=== PATIENT | female | born 1965 | race Caucasian/White ===

== ENCOUNTER 2021-02-27 11:06 | Emergency (ER) | payer MEDICAID, SELFPAY ==
--- NOTE | 2021-02-27 11:12 | ED.FEMALEGU ---
HPI - Female Genitourinary General Chief complaint: Urogenital-Female Stated complaint: Possible UTI/Rash on Arms and Legs Time Seen by Provider: 02/27/21 11:12 Source: patient and RN notes reviewed History of Present Illness HPI Narrative: Patient is a 55-year-old female who presents the urgent care with complaints of a possible UTI for the last few days. Patient states that she was on doxycycline for 1 week which seemed to clear it up and then the UTI returned. Its been approximately 2-1/2 weeks and she was given a prescription for doxycycline. Patient states that she has had UTIs recurrently for the last 6 months. Denies of any fever, chills, nausea, vomiting, abdominal pain. Reports of pain with urination, decreased output and suprapubic pressure. No other acute complaints. No acute distress noted. Patient aware of the plan of care. Some parts of this dictation were generated by voice recognition software and may contain typographical and/or grammatical inaccuracies. Related Data Home Medications Medication Instructions Recorded Confirmed aspirin [Aspir-Low] 81 mg PO DAILY 02/27/21 02/27/21 atorvastatin 20 mg PO HS 02/27/21 02/27/21 buspirone 7.5 mg PO BID 02/27/21 02/27/21 fluoxetine 20 mg PO DAILY 02/27/21 02/27/21 gabapentin 800 mg PO TID 02/27/21 02/27/21 glimepiride 4 mg PO DAILY 02/27/21 02/27/21 lisinopril 20 mg PO DAILY 02/27/21 02/27/21 metformin 500 mg PO BID 02/27/21 02/27/21 Allergies Allergy/AdvReac Type Severity Reaction Status Date / Time cephalexin [From Keflex] Allergy Itching Verified 02/27/21 11:33 Sulfa (Sulfonamide Allergy Itching Verified 02/27/21 11:33 Antibiotics) Review of Systems Review of Systems: Narrative: CONSTITUTIONAL: Denies fever, chills, or sweats. EYES: Denies visual changes, redness, or discharge. ENT: Denies rhinorrhea, congestion, sore throat, or otalgia. CARDIOVASCULAR: Denies chest pain, palpitations, or edema. RESPIRATORY: Denies cough or dyspnea. GASTROINTESTINAL: Denies abdominal pain, nausea, vomiting, or diarrhea. GENITOURINARY: Reports of dysuria, decreased urinary output and suprapubic pressure SKIN: Denies rash or itching. MUSCULOSKELETAL: Denies back pain, joint pain, or myalgia. NEUROLOGIC: Denies headache, numbness, or weakness. All other systems reviewed are negative, except as documented in HPI. PMFSH Comments At the time of my signature, I reviewed and agree with the nursing past medical, surgical, social, and family history. There is no relevant family history pertinent to the patient complaint. Exam Narrative: Exam Narrative: GENERAL: This is a well-nourished, well-developed patient, in no apparent distress. HEAD: normocephalic, atraumatic. EYES: PERRL. Sclera clear/white. Vision is grossly intact. EARS: External ears normal NOSE: External nose normal with no obvious nasal discharge, nares without redness, no rhinorrhea. THROAT: Mucous membranes moist NECK: Neck supple CARDIOVASCULAR: Regular rate and rhythm without murmurs, gallops, or rubs. RESPIRATORY: Clear to auscultation. Breath sounds equal bilaterally. No wheezes, rales, or rhonchi. GASTROINTESTINAL: Abdomen soft, suprapubic tenderness, nondistended. SKIN: Scattered bug bites to bilateral upper extremities. Warm, intact with no suspicious lesions or rash, good texture and turgor. NEURO: awake, alert, and oriented to person, place and time. There were no obvious focal neurologic abnormalities. EXTREMITIES: No clubbing, cyanosis, or edema. BACK: Negative bilateral CVA tenderness Course Vital Signs Vital signs: Vital Signs Temperature 98.7 F 02/27/21 11:21 Pulse Rate 104 H 02/27/21 11:21 Respiratory Rate 02/27/21 11:21 Blood Pressure 144/82 H 02/27/21 11:21 Pulse Oximetry 98 02/27/21 11:21 Temperature 98.7 F 02/27/21 11:21 Pulse Rate 104 H 02/27/21 11:21 Respiratory Rate 02/27/21 11:21 Blood Pressure 144/82 H 02/27/21 11:21 Pulse Oximetry 98
[2021-02-27 11:21] VITALS: BP 144/82; PULSE 104; RESP 20; TEMP 37.1; O2SAT 98
== END 2021-02-27 11:50 | disposition home or self-care (01) ==
PROVIDERS: Emergency Provider Nurse Practitioner Family; PCP Nurse Practitioner Family
DX: N39.0 Urinary tract infection, site not specified (principal); E78.00 Pure hypercholesterolemia, unspecified; I10 Essential (primary) hypertension; E11.9 Type 2 diabetes mellitus without complications; F41.9 Anxiety disorder, unspecified
CPT/HCPCS: 81003; 87077; 87086; 87088; 87186; 99213; G0463

== ENCOUNTER 2021-03-04 12:43 | Emergency (ER) | payer OTHER, SELFPAY ==
[2021-03-04 12:48] VITALS: BP 158/84; PULSE 96; RESP 16; TEMP 36.2; O2SAT 98
[2021-03-04 13:09] VITALS: BP 158/84; PULSE 96; RESP 16; TEMP 36.2; O2SAT 98
--- NOTE | 2021-03-04 13:37 | ED.SKABFB ---
HPI - Skin/Abscess/Foreign Bdy General Chief complaint: Skin/Abscess/Foreign Body Stated complaint: poison phoebe or oak Time Seen by Provider: 03/04/21 13:39 Source: patient Mode of arrival: ambulatory Limitations: no limitations History of Present Illness HPI narrative: Kaley Prince is a 55 yo female with a PMH of HTN, diabetes, anticoagulation, depression, who comes to [facility] with complaints of rash on arms legs and upper shoulders after rolling down a hill on Friday night. Rash started to occur on Friday and she has tried high choke cortisone cream as well as calamine, allergy pills, has not improved Related Data Home Medications Medication Instructions Recorded Confirmed aspirin [Aspir-Low] 81 mg PO DAILY 02/27/21 03/04/21 atorvastatin 20 mg PO HS 02/27/21 03/04/21 buspirone 7.5 mg PO BID 02/27/21 03/04/21 fluoxetine 20 mg PO DAILY 02/27/21 03/04/21 gabapentin 800 mg PO TID 02/27/21 03/04/21 glimepiride 4 mg PO DAILY 02/27/21 03/04/21 lisinopril 20 mg PO DAILY 02/27/21 03/04/21 metformin 500 mg PO BID 02/27/21 03/04/21 Allergies Allergy/AdvReac Type Severity Reaction Status Date / Time cephalexin [From Keflex] Allergy Itching Verified 03/04/21 13:08 Sulfa (Sulfonamide Allergy Itching Verified 03/04/21 13:08 Antibiotics) Review of Systems Review of Systems: CONSTITUTIONAL: Denies fever, chills, sweats. EYES: Denies visual changes, redness, discharge. ENT: Denies rhinorrhea, congestion, sore throat, otalgia. CARDIOVASCULAR: Denies chest pain, palpitations, edema. RESPIRATORY: Denies dyspnea, wheezing, cough GASTROINTESTINAL: Denies abdominal pain, nausea, vomiting, diarrhea. GENITOURINARY: Denies dysuria, hematuria, abnormal discharge SKIN: Has contact dermatitis all over arms legs and top of shoulders NEUROLOGIC: Denies numbness, or focal weakness. PSYCHIATRIC: Denies anxiety or depression. [facility] Past Medical History Medical History Diabetes High cholesterol HTN (hypertension) Family History Family History Other Diabetes mellitus High cholesterol Hypertension Social History Social History (Updated 03/04/21 @ 13:48 by Jossy Saucedo CNP) Smoking packs per day: 1.0 Smoking cigarettes per day: 20.0 Smoking status: Current every day smoker Alcohol intake: current Comments At time of signature, I agree with nursing past medical, surgical, social and family history. There is no relevant family history pertinent to the presenting complaint. Exam Narrative: GENERAL: This is a well-nourished, well-developed patient, in mild distress. HEAD: normocephalic, atraumatic. EYES: Sclera clear/white. Vision is grossly intact. EARS: External ears normal, Hearing grossly intact. NOSE: External nose normal without nasal discharge, nares without redness, no rhinorrhea. THROAT: Mucous membranes moist, NECK: Neck supple, CARDIOVASCULAR: Regular rate and rhythm without murmurs, gallops, or rubs. RESPIRATORY: Clear to auscultation. Breath sounds equal bilaterally. No wheezes, rales, or rhonchi. GASTROINTESTINAL: Abdomen soft SKIN: warm, intact with red papular rash all over arms legs and top of the shoulders, based on history of some type of contact dermatitis NEURO: awake, alert, and oriented to person, place and time. There were no obvious focal neurologic abnormalities. Steady gait EXTREMITIES: Normal range of motion. BACK: Nontender without deformity Course Course Emergency Course: [facility] rash over her arms legs and back of the shoulders Given prednisone 80 mg IM here Started on Medrol Dosepak, Pepcid, Benadryl Discussed adjusting her sliding scale insulin to adjust for increased blood sugar from steroids Vital Signs Vital signs: Vital Signs Temperature 97.2 F L 03/04/21 12:48 Pulse Rate 96 03/04/21 12:48 Respiratory Rate 16 08/0
[2021-03-04] MEDS: methylPREDNISolone ACETATE 80 MG/ML VIAL IM (13:54)
== END 2021-03-04 14:14 | disposition home or self-care (01) ==
PROVIDERS: Emergency Provider Nurse Practitioner; PCP Nurse Practitioner Family
DX: L23.7 Allergic contact dermatitis due to plants, except food (principal); F17.210 Nicotine dependence, cigarettes, uncomplicated; E11.9 Type 2 diabetes mellitus without complications; E78.00 Pure hypercholesterolemia, unspecified; I10 Essential (primary) hypertension; Z79.82 Long term (current) use of aspirin
CPT/HCPCS: 96372; 99213; G0463; J1040

== ENCOUNTER 2021-10-08 10:20 | Emergency (ER) | payer OTHER, SELFPAY ==
[2021-10-08 10:28] VITALS: BP 149/88; PULSE 88; RESP 20; TEMP 36.7; O2SAT 99
--- NOTE | 2021-10-08 10:31 | ED.FEMALEGU ---
HPI - Female Genitourinary General Chief complaint: Urogenital-Female Stated complaint: Urinary Problem Time Seen by Provider: 10/08/21 10:50 Source: patient Mode of arrival: ambulatory Limitations: no limitations History of Present Illness HPI Narrative: Mrs. Prince is a 55-year-old female patient presenting to the clinic today with complaints of urinary symptoms x 3 days. She reports burning, frequency, and urgency. Also reports vaginal itching. Has recently been on Cipro for UTI. She denies any flank pain, abdominal pain, fever, or chills. She denies any vaginal discharge. Also reporting that she is out of her Lantus and is needing a refill. Related Data Home Medications Medication Instructions Recorded Confirmed aspirin [Aspir-Low] 81 mg PO DAILY 02/27/21 10/08/21 atorvastatin 20 mg PO HS 02/27/21 10/08/21 buspirone 7.5 mg PO BID 02/27/21 10/08/21 gabapentin 800 mg PO TID 02/27/21 10/08/21 lisinopril 20 mg PO DAILY 02/27/21 10/08/21 fluoxetine 40 mg PO DAILY 10/08/21 10/08/21 insulin glargine [Lantus Solostar 50 unit SUBCUT HS 10/08/21 10/08/21 U-100 Insulin] Allergies Allergy/AdvReac Type Severity Reaction Status Date / Time cephalexin [From Keflex] Allergy Itching Verified 10/08/21 10:40 Sulfa (Sulfonamide Allergy Itching Verified 10/08/21 10:40 Antibiotics) Review of Systems Review of Systems: Pertinent positives per HPI. Patient denies any fever, chills, rash, headache, visual changes, dizziness, cough, runny nose, sore throat, shortness of breath, chest pain, palpitations, nausea, vomiting, diarrhea, constipation, or any abdominal pain. [facility] Past Medical History Medical History Diabetes High cholesterol HTN (hypertension) Family History Family History Other Diabetes mellitus High cholesterol Hypertension Social History Social History Smoking packs per day: 1.0 Smoking cigarettes per day: 20.0 Smoking status: Current every day smoker Alcohol intake: current Comments At the time of my signature, I reviewed and agree with the nursing past medical, surgical, social, and family history. There is no relevant family history pertinent to the patient complaint. Exam Narrative: General: Well-developed, well nourished, in no apparent distress. Cardio: Regular rate and rhythm, s1 and s2 normal, no murmur appreciated. Resp: Clear to auscultation bilaterally, no rhonchi, rales, wheezing or rubs. Abdomen: Soft, pliable, bowel sounds present in all quadrants, non-tender to palpation, no organomegly, no CVAT tenderness. No suprapubic tenderness Course Course Emergency Course: Portions of this record may have been created with voice recognition software. Level of Care: Express Care Visit Vital Signs Vital signs: Vital signs reviewed MDM - Female Genitourinary MDM Narrative Medical decision making narrative: Discussed patient's glucose and urine and discussed that she needs to keep a tighter control of her blood sugars to prevent this. Diagnosis of urinary tract infection and Lori vagina in the clinic today. We will give 30 days worth of Lantus insulin. Discharge Plan Discharge Clinical Impression: Candidiasis, vagina Urinary tract infection Qualifiers: Urinary tract infection type: acute cystitis Hematuria presence: with hematuria Qualified Code(s): N30.01 - Acute cystitis with hematuria Hyperglycemia due to type 2 diabetes mellitus Qualifiers: Diabetes mellitus medical terminologist insulin use: unspecified medical terminologist insulin use status Qualified Code(s): E11.65 - Type 2 diabetes mellitus with hyperglycemia Patient Disposition: Home, Self-Care Condition: Stable Instructions: Antibiotic Form, Urinary Tract Infection in Women (ED), Yeast Infection (ED), Diabetes and Exercise (ED) Additional Instr
== END 2021-10-08 11:00 | disposition home or self-care (01) ==
PROVIDERS: Emergency Provider Nurse Practitioner Family
DX: B37.3 Candidiasis of vulva and vagina (principal); E11.65 Type 2 diabetes mellitus with hyperglycemia; E78.00 Pure hypercholesterolemia, unspecified; I10 Essential (primary) hypertension; F17.210 Nicotine dependence, cigarettes, uncomplicated; Z79.82 Long term (current) use of aspirin; Z79.4 Long term (current) use of insulin
CPT/HCPCS: 81003; 87077; 87086; 87088; 99213; G0463